=== PATIENT | female | born 1960 | race Caucasian/White ===

== ENCOUNTER → 2016-08-06 | Outpatient (CLI) | payer OTHER ==
[~2016-08-06] MED LIST: AMBIEN5 MG PO; AMMONIUM LACTA140 GM TP; BENADRYL50 MG PO; CITRACAL + D E1 EACH PO; FLONASE SENSIM9.9 ML BOTH NARES; GRALISE300 MG PO; IBUPROFEN200 M1 PO; IMITREX100 MG PO; INDOCIN25 MG PO; LIDODERM 5% P1 PATCH TD; MIRAPEX0.125 MG PO; NORCO 5/3251 TABLET PO; OMEPRAZOLE20 MG PO; PREMARIN0.3 MG PO; ZANAFLEX4 M1 PO; ZYRTEC10 M3 PO
== END | disposition home or self-care (01) ==
LOC: AMB 12:25
PROC: B01B1ZZ Fluoroscopy of Spinal Cord using Low Osmolar Contrast (ICD-10-PCS; principal; 2016-08-06)
PROC: 3E0R3KZ Introduction of Other Diagnostic Substance into Spinal Canal, Percutaneous Approach (ICD-10-PCS; principal; 2016-08-06)
DX: M47.26 Other spondylosis with radiculopathy, lumbar region (principal); M47.27 Other spondylosis with radiculopathy, lumbosacral region; R20.0 Anesthesia of skin; Z98.1 Arthrodesis status
CPT/HCPCS: 62304; 72132